=== PATIENT | male | born 1975 | race Native Hawaiian/Other Pacific Islander ===

== ENCOUNTER 2021-04-08 16:00 | Outpatient (CLI) | payer BC | END 2021-04-08 23:12 | disposition home or self-care (01) | LOC: RAD 16:00 | PROVIDERS: ATTEND Nurse Practitioner Family | DX: E55.9 Vitamin D deficiency, unspecified (principal); E56.8 Deficiency of other vitamins; M06.09 Rheumatoid arthritis without rheumatoid factor, multiple sites; M85.89 Other specified disorders of bone density and structure, multiple sites; Z79.899 Other long term (current) drug therapy ==

== ENCOUNTER 2022-02-10 16:38 | Outpatient (CLI) | payer BC | END 2022-02-10 20:45 | disposition home or self-care (01) | LOC: RAD 16:38 | PROVIDERS: ATTEND Nurse Practitioner Family | DX: M06.09 Rheumatoid arthritis without rheumatoid factor, multiple sites (principal); M85.89 Other specified disorders of bone density and structure, multiple sites; R76.0 Raised antibody titer; Z68.27 Body mass index [BMI] 27.0-27.9, adult; Z79.899 Other long term (current) drug therapy ==